=== PATIENT | female | born 1965 | race Caucasian/White ===

== ENCOUNTER 2020-02-10 17:13 | Emergency (ER) | payer OTHER ==
[~2020-02-10] VITALS: Ht 154.9 cm; Wt 47.6 kg
[2020-02-10] MEDS ORDERED: DURAGESIC1 EAC1 TD (17:25)
--- OUTSIDE RECORDS SUMMARY | 2020-02-10 18:12 | XMS ---
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 E.D. VISIT COUNT ([address] 4 [facility] [address] [facility] Game[facility] TOTAL 5 NOTE: Visits indicate total known visits. ED/UCC VISIT TRACKING (12 MO.) 02/10/2020 17:15 [facility] [place] TYPE: Emergency COMPLAINT: - HIP PAIN 01/26/2020 19:01 [facility] [place] TYPE: Emergency DIAGNOSES: - Urinary tract infection, site not specified - Malignant neoplasm of head of pancreas - Abdominal Pain - Pain in right foot - Right upper quadrant pain - Liver Pain - Foot Pain 08/02/2019 19:39 [facility] [place] TYPE: Emergency DIAGNOSES: - Skin reaction - Urticaria, unspecified - Urticaria 07/03/2019 13:37 [facility] [place] TYPE: Emergency DIAGNOSES: - Abdominal pain - Acute cystitis without hematuria - Unspecified abdominal pain 06/23/2019 05:29 [facility] [place] TYPE: Emergency DIAGNOSES: - Pain, unspecified - Disease of pancreas, unspecified - Other specified diseases of biliary tract - Unspecified jaundice - Abdominal Pain - Pain INPATIENT VISIT TRACKING ( MO.) 06/23/2019 05:29 [facility] TYPE: General Medicine DIAGNOSES: - Malignant neoplasm of pancreas, unspecified - Other specified diseases of biliary tract - Unspecified jaundice - Pain, unspecified - Disease of pancreas, unspecified [email or web address]
== END 2020-02-10 20:31 | disposition home or self-care (01) ==
LOC: ED 17:13
DX: G43.909 Migraine, unspecified, not intractable, without status migrainosus (principal); M25.552 Pain in left hip; C25.9 Malignant neoplasm of pancreas, unspecified; E11.9 Type 2 diabetes mellitus without complications; F17.200 Nicotine dependence, unspecified, uncomplicated; Z88.2 Allergy status to sulfonamides; Z79.891 Long term (current) use of opiate analgesic
CPT/HCPCS: 72170; 96361; 96374; 96375; 99283-25; J1200; J1885; J2765; J3010; J7030

== ENCOUNTER 2020-02-11 00:51 | Inpatient (IN) | payer OTHER ==
[~2020-02-11] VITALS: Ht 154.9 cm; Wt 53.1 kg
[~2020-02-11 00:51] MED LIST: DURAGESIC1 EAC1 TD
--- OUTSIDE RECORDS SUMMARY | 2020-02-11 00:54 | XMS ---
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 E.D. VISIT COUNT ([address] [facility] TOTAL 6 NOTE: Visits indicate total known visits. ED/UCC VISIT TRACKING (12 MO.) 02/11/2020 00:51 [facility] [place] TYPE: Emergency COMPLAINT: - PAIN 02/10/2020 17:15 [facility] [place] TYPE: Emergency COMPLAINT: - HIP PAIN 01/26/2020 19:01 [place] TYPE: Emergency DIAGNOSES: - Urinary tract infection, site not specified - Malignant neoplasm of head of pancreas - Abdominal Pain - Pain in right foot - Right upper quadrant pain - Liver Pain - Foot Pain 08/02/2019 19:39 [facility] ID TYPE: Emergency DIAGNOSES: - Skin reaction - Urticaria, unspecified - Urticaria 07/03/2019 13:37 [facility] ID TYPE: Emergency DIAGNOSES: - Abdominal pain - Acute cystitis without hematuria - Unspecified abdominal pain 06/23/2019 05:29 [place] TYPE: Emergency DIAGNOSES: - Pain, unspecified - Disease of pancreas, unspecified - Other specified diseases of biliary tract - Unspecified jaundice - Abdominal Pain - Pain INPATIENT VISIT TRACKING (12 MO.) 06/23/2019 05:29 [facility] TYPE: General Medicine DIAGNOSES: - Malignant neoplasm of pancreas, unspecified - Other specified diseases of biliary tract - Unspecified jaundice - Pain, unspecified - Disease of pancreas, unspecified [email or web address]
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
--- NOTE | 2020-02-11 12:00 | NUR ---
PT CBG CHECKED AND IT WAS 40 RECHECKED AND IT WAS 31. AMP OF D50 IVP GIVEN AND DR SANCHEZ IS AWARE, NEW ORDERS RECEIVED. 1220 CBG 131 AND IV FLUIDS CHANGE TO D5LR. 1249 TALK WITH PT KAREN ABOUT PT AND SHE IS UNABLE TO GO TO [facility] DUE TO NO BED SPACE AT THIS TIME. OLD FENTANYL PATCHED REMOVED. HE WAS UNSURE WHEN IT WAS PLACED. ADMITT PROCESS COMPLETED THE BEST WHEN PT AND KAREN ARE UNABLE TO ANSWER QUESTIONS.
--- NOTE | 2020-02-11 12:50 | NUR ---
ROSS CATHETER WAS PLACED ALSO DURING HER ADMITT PROCESS CIARA THICK URINE RETURNED.
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
--- NOTE | 2020-02-11 13:41 | NUR ---
TALKED WITH DAUGHTER ABOUT HISTORY OF PT WHO HAS A STENT PLACED.
--- NOTE | 2020-02-11 14:49 | NUR ---
PT TEE AND ALL THE BELONGINGS IN IT SENT HOME WITH HER LIFE PARTNER OLLIE. PERSONAL CLOTHING LEFT FOR PT.
--- NOTE | 2020-02-11 14:50 | NUR ---
PT CONTIOUES TO KAITLYN OUTLOUD AT TIMES, WAS MEDICATED WITH MORPHINE 4MG IVP AND FENTANYL PATCH PLACED ON LEFT SHOULDER WITH OP SITE OF PATCH.
--- NOTE | 2020-02-11 15:16 | NUR ---
TALKED WITH PT CAREGIVER PHONG. SOME QUESTIONS ANSWERED FOR STAFF REGARDING PT HEALTHCARE.
--- NOTE | 2020-02-11 15:34 | NUR ---
LAB PRESENT TO OBTAIN BLOOD CULTURES.
--- NOTE | 2020-02-11 15:37 | NUR ---
PATIENT IS NOT ABLE TO ANSWER QUESTIONS. HAIR ASSISTANT GAVE ME THE NAME OF HER CAREGIVER FROM [facility] [phone].
--- NOTE | 2020-02-11 16:09 | NUR ---
PT KAREN HAS LEFT AT THIS TIME, HE WILL COME BACK. BED ALARM ON AND S-PADS REMAIN INPLACE. SHE CONTIOUES TO YELL OUTLOUD AND THEN QUITE. SHE DOES NOT TRY TO GET OUT OF BED, ROSS CATHETER CONTIOUES TO DRAIN CIARA IN COLOR URINE.
--- NOTE | 2020-02-11 18:04 | NUR ---
PT URINE DECREASED DR TREVINO NOTIFIED AND IV FLUID BOLUS STARTED. LR 500MLS IV FLUIDS STARTED.
--- NOTE | 2020-02-11 18:10 | NUR ---
PT IS BEING TRANSFERED VIA [facility] AND THEY ARE HERE AT THIS TIME.
--- NOTE | 2020-02-11 18:33 | NUR ---
[facility] here all questions answered at this time, pt information and belongings gave to them also. Family has been updated about transfeer. 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
--- NOTE | 2020-02-11 18:36 | NUR ---
see flow sheet for vital signs.
--- NOTE | 2020-02-11 18:51 | NUR ---
REPORT CALLED TO [facility] AT THIS TIME, ALL QUESTIONS ANSWERED. PT LEFT VIA [facility] AND THEY TOOK ALL BELONGINGS.
== END 2020-02-11 18:40 | disposition short-term general hospital (02) | DRG 871 ==
LOC: ED 00:51 → CCU 10:35
PROVIDERS: ADMIT Internal Medicine
DX: A41.50 Gram-negative sepsis, unspecified (principal); G93.41 Metabolic encephalopathy; C25.9 Malignant neoplasm of pancreas, unspecified; K83.09 Other cholangitis; F17.200 Nicotine dependence, unspecified, uncomplicated; R82.5 Elevated urine levels of drugs, medicaments and biological substances; E11.9 Type 2 diabetes mellitus without complications; E87.6 Hypokalemia; E83.42 Hypomagnesemia; G89.4 Chronic pain syndrome; Z79.891 Long term (current) use of opiate analgesic; Z88.2 Allergy status to sulfonamides
CPT/HCPCS: 70450; 71045; 74176; 80053; 81001; 82140; 83036; 83605; 83690; 83735; 85025; 85610; 85730; G0480; J0692; J1650; J2060; J2270; J2543; J3475; J3480; J7030; J7121